=== PATIENT | male | born 1940 | race Caucasian/White ===

== ENCOUNTER → 2024-06-14 | Outpatient (CLI) | payer MEDICARE, OTHER, SELFPAY ==
[2024-06-14 10:40] LABS: Hematocrit 46.2 % (40-54); Mean Corp Hgb Conc 32.5 g/dL (32-36); Mean Corpuscular Hgb 28.1 pg (27.0-32.0); Mean Corpuscular Volume 86.7 fL (80-94); Mean Platelet Vol. 11.4 fl (6.2-12.0); Platelet Count 180 K/mm3 (150-450); RBC Distribution Width CV 14.5 % (11.6-14.6); RBC Distribution Width SD 45.9 fl (35.1-43.9); Red Blood Count 5.33 M/mm3 (4.6-6.2); White Blood Count 6.5 K/mm3 (4.4-11.0)
[2024-06-14 10:50] LABS: Vitamin B12 770 pg/mL (211-911)
[2024-06-14 11:02] LABS: AST(SGOT) 13 U/L (15-37); Alanine Aminotransfer ALT/SGPT 17 U/L (16-61); Albumin, Serum 3.4 g/dL (3.2-5.0); Alkaline Phosphatase 87 U/L (45-117); Anion Gap 5 (5-15); BUN 14 mg/dL (7-18); BUN/Creat Ratio 19.3 RATIO (10-20); Calcium,Total 9.4 mg/dL (8.5-10.1); Chloride 108 mmol/L (98-107); Creatinine, Serum 0.72 mg/dL (0.70-1.30); EST Glomerular Filtration Rate 110 mL/min (>60); Est Glom Filt Rate - Afr Amer 133 mL/min (>60); Globulin 3.3 g/dL (2.2-4.2); Glucose 103 mg/dL (74-106); Protein, Total 6.7 g/dL (6.4-8.2); Sodium Level 139 mmol/L (136-145)
[2024-06-17 14:09] LABS: Free Kappa Light Chains 15.1 mg/L (3.3-19.4); Free Lambda Light Chains 8.6 mg/L (5.7-26.3); Vitamin B1, Thiamine 108.4 nmol/L (66.5-200.0)
== END | disposition home or self-care (01) ==
LOC: MTLAB 07:40
PROVIDERS: PCP Family Medicine; Referring Provider Psychiatry & Neurology Neurology; Visit Provider Psychiatry & Neurology Neurology
DX: F03.90 Unspecified dementia, unspecified severity, without behavioral disturbance, psychotic disturbance, mood disturbance, and anxiety (principal); G62.9 Polyneuropathy, unspecified
CPT/HCPCS: 36415; 80053; 82607; 82746; 83883; 84425; 84443; 85027

== ENCOUNTER → 2024-07-11 | Outpatient (CLI) | payer MEDICARE, OTHER, SELFPAY ==
--- NOTE | 2024-07-11 10:15 | MRI_ITS ---
STUDY: MRI BRAIN WITHOUT CONTRAST REASON FOR EXAM: Male, 83 years old. dementia TECHNIQUE: Standardized multiplanar fat and water weighted pulse sequences were obtained. COMPARISON: None. FINDINGS: Moderate atrophy and minor periventricular white matter hyperintensity but no significant white matter disease, mass affect or restricted diffusion . Normal bilateral basal ganglia. Normal thalami. There is no extra-axial fluid accumulation. Normal flow voids within the major intracranial circulation suggesting patency by spin echo criteria. Normal sella turcica, pituitary gland, infundibular stalk, optic chiasm and hypothalamus. Normal tectal plate and pineal gland. Normal midbrain, leah and medulla. Normal cerebellum. Normal basal cisterns. Normal bilateral temporal bones. Normal bilateral internal auditory canals. Postsurgical changes of the orbits.. Normal visualized paranasal sinuses. Normal calvarium and skull base. Normal visualized soft tissue structures. Normal visualized upper cervical spine. MRI/Brain without Contrast IMPRESSION: Moderate atrophy without other significant abnormalities Electronically Signed: Triston Hernandez MD at 16:40 EDT ,
== END | disposition home or self-care (01) ==
PROVIDERS: PCP Family Medicine; Referring Provider Psychiatry & Neurology Neurology; Visit Provider Psychiatry & Neurology Neurology
DX: F03.90 Unspecified dementia, unspecified severity, without behavioral disturbance, psychotic disturbance, mood disturbance, and anxiety (principal)
CPT/HCPCS: 70551

== ENCOUNTER 2025-06-01 14:59 | Emergency (ER) | payer MEDICARE, OTHER, SELFPAY ==
[2025-06-01 15:03] VITALS: BP 124/75; PULSE 90; RESP 18; TEMP 36.4; O2SAT 95
--- NOTE | 2025-06-01 15:07 | CT_ITS ---
PROCEDURE: BRAIN/HEAD WITHOUT CONTRAST 06/01/2025 REASON FOR EXAM: TRAUMA TECHNIQUE: BRAIN/HEAD WITHOUT CONTRAST Coronal and Sagittal reconstruction series were provided. One or more dose reduction techniques were used (e.g., Automated exposure control, adjustment of the mA and/or kV according to patient size, use of iterative reconstruction technique. RADIATION DOSE SUMMARY: CTDlvol: 44.99 mGy DLP: 880.47 mGycm COMPARISON: None FINDINGS: Brain: Low density in the periventricular white matter suggests mild chronic small vessel ischemic changes. CSF Spaces: Moderate generalized cerebral atrophy Sinuses/Mastoids: Clear at visualized levels Bones: Unremarkable CT/Brain/Head without Contrast IMPRESSION: CHRONIC CHANGES. NO ACUTE FINDINGS. Reading Location: [id number]
--- NOTE | 2025-06-01 15:32 | CT_ITS ---
PROCEDURE: SPINE CERVICAL WITHOUT CONTRAS 06/01/2025 REASON FOR EXAM: FALL TECHNIQUE: SPINE CERVICAL WITHOUT CONTRAS Coronal and Sagittal reconstruction series were provided. One or more dose reduction techniques were used (e.g., Automated exposure control, adjustment of the mA and/or kV according to patient size, use of iterative reconstruction technique. RADIATION DOSE SUMMARY: CTDlvol: 23.51 mGy DLP: 556.34 mGycm COMPARISON: None FINDINGS: Alignment: Minimal anterior listhesis of C3 on C4 and C4 on C5 most likely secondary to facet joint osteoarthritis. Vertebrae: Vertebral heights are maintained. Soft Tissues: No prevertebral soft tissue swelling. Calcification of the carotid bifurcations. Other: C1-2: Degenerative changes at the atlantoaxial joint. C2-3: Mild degree of disc space narrowing. Facet joint osteoarthritis and hypertrophy worse on the right side. Uncovertebral arthrosis. Moderate right neural foraminal stenosis. C3-4: Minimal anterior listhesis of C3 on C4. Facet joint osteoarthritis and hypertrophy worse on the right side. Uncovertebral arthrosis. Moderate degree of bilateral neural foraminal stenosis. C4-5: Minimal anterior listhesis of C4 on C5. Facet joint osteoarthritis and hypertrophy worse on the right side. Uncovertebral arthrosis. Bilateral neural foraminal stenosis worse on the right side. C5-6: Marked degree of disc space narrowing. Spondylosis. Facet joint osteoarthritis. C6-7: Moderate degree of disc space narrowing. Spondylosis. C7-T1: Unremarkable CT/Spine Cervical without Contras IMPRESSION: DEGENERATIVE CHANGES OF THE CERVICAL SPINE. NO EVIDENCE OF SIGNIFICANT OSSEOUS CENTRAL CANAL OR NEURAL FORAMINAL STENOSIS. Reading Location: [facility]
--- NOTE | 2025-06-01 15:33 | ED.VIS.FALL ---
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 He got out to try and see when going on and fell and hit his head on the bucket and scraped both hands. He denies loss of consciousness. He called his neighbor on his cell phone and and was mumbling and confused so they called EMS. The neighbor came over and took his out to the bar to see him. According to his he has Alzheimer's dementia and is acting his normal self. He is not on blood thinners. PFSH <ZEFERINO Banuelos - Last Filed: 06/01/25 17:22> [facility] Home Medications ?Medication ?Instructions ?Recorded ?Last Taken ?Type lisinopril 10 mg tablet 10 mg PO DAILY 06/09/24 Unknown History memantine 14 mg capsule 14 mg PO DAILY #7 ea 10/31/24 Unknown Rx sprinkle,extended release 24hr memantine 21 mg capsule 21 mg PO DAILY #7 ea 10/31/24 Unknown Rx sprinkle,extended release 24hr memantine 28 mg capsule 28 mg PO DAILY #30 ea 10/31/24 Unknown Rx sprinkle,extended release 24hr memantine 7 mg capsule 7 mg PO DAILY #7 ea 10/31/24 Unknown Rx sprinkle,extended release 24hr buspirone 10 mg tablet 10 mg PO BID #180 tabs 03/14/25 Unknown Rx donepezil 10 mg tablet 10 mg PO QHS #90 tabs 03/14/25 Unknown Rx Allergy/AdvReac Type Severity Reaction Status Date / Time amoxicillin Allergy Intermediate Itching Verified 02/06/25 10:03 Surgical History (Updated 06/01/25 @ 15:50 by Missael Jennings) H/O shoulder surgery Total knee replacement status Social History Smoking Status: Never smoker ROS <ZEFERINO Banuelos - Last Filed: 06/01/25 17:22> ROS ED ROS Narrative Eyes: Negative for visual change. CVS: Negative for chest pain, syncope. Respiratory: Negative for shortness of breath. GI: Negative for nausea, vomiting. Neuro: Negative for headache. EXAM <ZEFERINO Banuelos - Last Filed: 06/01/25 17:22> Physical Exam Narrative Exam Narrative: CONST: Patient sitting in no acute distress. EYES: Normal inspection. PERRL, EOMI. HEAD: Abrasions on the left temporoparietal scalp. No lacerations. No hematoma, no deformity or crepitus, no raccoon eyes or Rivera sign, no epistaxis or nasal septal hematoma, no hemotympanum, no CSF otorrhea or rhinorrhea. NECK: Normal inspection. No midline spinal tenderness, no step off or crepitus. RESP: No respiratory distress, CTAB. Chest wall nontender. CVS: Regular rate and rhythm, no murmur, no gallop. ABD: Soft and nontender, no guarding or rebound. Back: Normal inspection, no midline tenderness. SKIN: Color normal, no rash, warm, dry, intact. EXTREMITIES: Normal appearance, moving upper and lower extremities through full range of motion, no bony tenderness, 2+ radial and PT pulses. 2 small skin tears on the dorsal right hand, 1 small skin tear on left dorsal hand. NEURO: Alert to self, place, year, and answering questions appropriately. PSYCH: Normal affect. Const Vital Signs: 06/01/25 15:03 06/01/25 15:49 06/01/25 16:42 Temperature 97.6 F L 97.8 F Temperature Source Temporal Pulse Rate 90 58 L Respiratory Rate 18 16 Respiratory Effort Normal Respiratory Depth Normal Respiratory Pattern Normal Blood Pressure 124/75 H 116/69 Blood Pressure Mean 91 84 Pulse Ox 95 100 Oxygen Delivery Method Room Air <Dr. Trav Razo MD - Last Filed: 06/01/25 16:25> Physical Exam Const Vital Signs: 06/01/25 15:03 06/01/25 15:49 06/01/25 16:42 Temperature 97.6 F L 97.8 F Temperature Source Temporal Pulse Rate 90 58 L Respiratory Rate 18 16 Respiratory Effort Normal Respiratory Depth Normal Respiratory Pattern Normal Blood Pressure 124/75 H 116/69 Blood Pressure Mean 91 84 Pulse Ox 95 100 Oxygen Delivery Method Room Air MDM <ZEFERINO Banuelos - Last Filed: 06/01/25 17:22> [facility] Narrative Medical decision making narrative: History gathered from: Patient and family member Differential includes closed head injury, skull fracture, intracranial hemorrhage Patient tripped after his tractor as well as head on the front boat loader bucket. No LOC. No blood thinners. He is awake and alert and oriented x 3 which is his baseline with dementia. He is in no distress and denies pain. His superficial lacerations of the left anterior scalp and on both dorsal hands. Nothing requires repair. He is normal heart lung exam, no injury to his thorax. Moving all extremities and neurovascular intact. CT scans of the head and neck are negative for acute findings. He was given a tetanus update and head injury return precautions and was discharged in stable condition. I have personally performed a face to face assessment of the patient and have reviewed the KIMBERLY Note. I performed a substantive portion of the visit including all aspects of the following. My johnson findings include: History is [84-year-old male history of some dementia. Has a tractor in his barn he got off of it tripped and fell hit his head he believes on the front boat loader. No LOC. He is not on blood thinners besides aspirin. But he has superficial laceration to his scalp and his left hand.] Exam is [84-year-old male sitting upright in bed. No acute distress. Family with him. Vital signs stable afebrile. H EENT exam pupils round react to light. No facial trauma. Dentition intact. Superficial laceration left anterior front of his scalp. Does not need to be repaired. Has been cleaned. C-spine and trachea nontender. Back and spine nontender. No lacerations. Lungs clear to auscultation. Heart regular rhythm rate about 90 no murmur. Chest wall ribs nontender. Abdomen soft nontender. Pelvic girdle intact. Hips nontender. 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 He has abrasion on the dorsum of his left hand it has been cleaned. Wrists are nontender as are forearms and elbows and shoulders. Normal range of motion upper extremities. Normal dorsi plantarflexion. Normal hip and knee flexion extension. Neurologically he is awake alert. Answering questions following commands. GCS of 15.] Medical Decision Making [84-year-old male fell head injury. CT brain and neck showed chronic changes but no acute fractures. Wounds have all been cleaned and dressed will be discharged to home nothing needs to be sewn. His tetanus is up-to-date.] Other additions or changes: [None] Radiography Diagnostic Testing: Clinical Impression(s) from Imaging Studies Brain CT 08/07/25 15:07 IMPRESSION: CHRONIC CHANGES. NO ACUTE FINDINGS. Reading Location: [id number] Cervical Spine CT 06/01/25 15:32 IMPRESSION: DEGENERATIVE CHANGES OF THE CERVICAL SPINE. NO EVIDENCE OF SIGNIFICANT OSSEOUS CENTRAL CANAL OR NEURAL FORAMINAL STENOSIS. Reading Location: [facility] <Dr. Trav Razo MD - Last Filed: 06/01/25 16:25> [facility] MDM Narrative Medical decision making narrative: I have personally performed a face to face assessment of the patient and have reviewed the KIMBERLY Note. I performed a substantive portion of the visit including all aspects of the following. My johnson findings include: History is [84-year-old male history of some dementia. Has a tractor in his barn he got off of it tripped and fell hit his head he believes on the front boat loader. No LOC. He is not on blood thinners besides aspirin. But he has superficial laceration to his scalp and his left hand.] Exam is [84-year-old male sitting upright in bed. No acute distress. Family with him. Vital signs stable afebrile. H EENT exam pupils round react to light. No facial trauma. Dentition intact. Superficial laceration left anterior front of his scalp. Does not need to be repaired. Has been cleaned. C-spine and trachea nontender. Back and spine nontender. No lacerations. Lungs clear to auscultation. Heart regular rhythm rate about 90 no murmur. Chest wall ribs nontender. Abdomen soft nontender. Pelvic girdle intact. Hips nontender. 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 He has abrasion on the dorsum of his left hand it has been cleaned. Wrists are nontender as are forearms and elbows and shoulders. Normal range of motion upper extremities. Normal dorsi plantarflexion. Normal hip and knee flexion extension. Neurologically he is awake alert. Answering questions following commands. GCS of 15.] Medical Decision Making [84-year-old male fell head injury. CT brain and neck showed chronic changes but no acute fractures. Wounds have all been cleaned and dressed will be discharged to home nothing needs to be sewn. His tetanus is up-to-date.] Other additions or changes: [None] History & Record Review Discussion w/independent historian: Patient and Family Additional record(s) reviewed:: Prior inpatient record, Prior outpatient record, Prior ED visit and Prior labs Radiography Diagnostic Testing: Clinical Impression(s) from Imaging Studies Brain CT 06/01/25 15:07 IMPRESSION: CHRONIC CHANGES. NO ACUTE FINDINGS. Reading Location: [facility] Cervical Spine CT 06/01/25 15:32 IMPRESSION: DEGENERATIVE CHANGES OF THE CERVICAL SPINE. NO EVIDENCE OF SIGNIFICANT OSSEOUS CENTRAL CANAL OR NEURAL FORAMINAL STENOSIS. Reading Location: [facility] Discharge Plan Triage Chief Complaint: Fall ED Midlevel Provider: Caprice Rocha ED Provider: Trav Razo Dx/Rx/DC Orders Clinical Impression: Fall, Closed head injury, Abrasion of scalp, Skin tear of left hand without complication, Skin tear of right hand without complication Instructions: ED Head Injury (Adult), ED Skin Tear (Skin Avulsion) Prescriptions: No Action lisinopril 10 mg tablet 10 mg PO DAILY memantine 7 mg capsule,sprinkle,ER 24hr 7 mg PO DAILY Qty: 7 0RF Rx Instructions: Week #1 memantine 14 mg capsule,sprinkle,ER 24hr 14 mg PO DAILY Qty: 7 0RF Rx Instructions: Week #2 memantine 21 mg capsule,sprinkle,ER 24hr 21 mg PO DAILY Qty: 7 0RF Rx Instructions: Week #3 memantine 28 mg capsule,sprinkle,ER 24hr 28 mg PO DAILY Qty: 30 6RF Rx Instructions: Week #4 and thereafter donepezil 10 mg tablet 10 mg PO QHS Qty: 90 1RF buspirone 10 mg tablet 10 mg PO BID Qty: 180 1RF Primary Care Provider: Dianna Cardona Referrals: Dianna Cardona MD [Primary Care Provider] - Activity Restrictions/Additional Instructions: The CT scans of your head and neck showed no broken bones or internal bleeding. Ice and take Tylenol as needed. Keep the wounds clean and you can cover them with bacitracin and a bandage until healed. If you develop a severe headache, vomiting, or increased confusion please be seen at the emergency room again. Print Language: Qatari Disposition Disposition: Home, Self Care Discharge Date/Time: 06/01/25 16:42
[2025-06-01 15:48] VITALS: BMI 29.3
[2025-06-01 16:42] VITALS: BP 116/69; PULSE 58; RESP 16; TEMP 36.6; O2SAT 100
== END 2025-06-01 16:42 | disposition home or self-care (01) ==
PROVIDERS: Emergency Provider Emergency Medicine; PCP Family Medicine; Visit Provider Emergency Medicine
DX: S61.411A Laceration without foreign body of right hand, initial encounter (principal); G30.9 Alzheimer's disease, unspecified; F02.80 Dementia in other diseases classified elsewhere, unspecified severity, without behavioral disturbance, psychotic disturbance, mood disturbance, and anxiety; S00.01XA Abrasion of scalp, initial encounter; S61.412A Laceration without foreign body of left hand, initial encounter; S09.90XA Unspecified injury of head, initial encounter; V83.5XXA Driver of special industrial vehicle injured in nontraffic accident, initial encounter
CPT/HCPCS: 70450; 72125; 90715; 99284

== ENCOUNTER → 2025-06-15 | Outpatient (CLI) | payer MEDICARE, OTHER, SELFPAY | END | disposition home or self-care (01) | LOC: MTLAB 11:05 | PROVIDERS: PCP Family Medicine; Referring Provider Psychiatry & Neurology Neurology; Visit Provider Psychiatry & Neurology Neurology | DX: G30.9 Alzheimer's disease, unspecified (principal); F02.80 Dementia in other diseases classified elsewhere, unspecified severity, without behavioral disturbance, psychotic disturbance, mood disturbance, and anxiety | CPT/HCPCS: 36415; 81401 ==